=== PATIENT | female | born 1965 | race Caucasian/White ===

== ENCOUNTER 2018-05-14 10:37 | Inpatient (IN) | payer BC, MEDICARE, OTHER ==
[~2018-05-14] VITALS: Ht 160 cm; Wt 82.6 kg
[2018-05-14 12:34] LABS: HEMOGLOBIN. 8.1 g/dL (12.0-16.0); MEAN CORPUSCULAR HEMOGLOBIN 30.7 pg (28.0-32.0); MEAN CORPUSCULAR VOLUME 94.6 fL (81.0-99.0); MEAN PLATELET VOLUME 10.6 fl (7.4-10.4); PLATELET 160 x1000/uL (130-400); RED BLOOD CELL COUNT 2.65 mill/uL (4.2-5.4); RED CELL DISTRIBUTION WIDTH 15.3 % (11.6-14.6)
[2018-05-14 12:37] LABS: CHLORIDE 94 mEq/L (98-107)
[2018-05-14 12:40] LABS: INR 1.3; PROTHROMBIN TIME 12.6 sec (9.1-11.1)
[2018-05-14] MEDS ORDERED: VANCOMYCIN 1 G PREMIX 200 ML IV ONE (13:00)
[2018-05-14] MEDS ORDERED: SODIUM BICARBONATE 8.4% 1 MEQ/ML 50ML SYR IV ONE (13:00)
[2018-05-14] MEDS ORDERED: PIPERACILLIN/TAZ 3.375G PREMIX 50 ML IV ONE (13:00)
[2018-05-14] MEDS ORDERED: DEXTROSE 50% WATER 50ML SYRINGE IV ONE (13:00)
[2018-05-14] MEDS ORDERED: LEVOFLOXACIN 750MG PREMIX 150 ML IV ONE (13:00)
[2018-05-14] MEDS ORDERED: LEVOFLOXACIN 500MG PREMIX 100 ML IV ONE (13:00)
[2018-05-14] MEDS ORDERED: INSULIN REGULAR (HUMULIN R) 300UNITS/3ML IV ONE (13:00)
[2018-05-14] MEDS ORDERED: CALCIUM CHLORIDE 1GM/10ML SYR IV ONE (13:00)
[2018-05-14] MEDS ORDERED: SODIUM CHLORIDE 0.9% 1000ML BAG (SEPSIS BOLUS) IV ONE (13:00)
[2018-05-14] MEDS ORDERED: ALBUTEROL (0.083%) 2.5MG/3ML NEB HHN ONE (13:00)
[2018-05-14] MEDS ORDERED: SODIUM POLYSTYRENE SULFONATE 15 G/60 ML BOT PO ONE (13:00)
[2018-05-14 13:06] LABS: PLATELET ESTIMATE NORMAL
[2018-05-14] MEDS ORDERED: ASPIRIN 325MG TABLET PO ONE (13:15)
[2018-05-14] MEDS ORDERED: ACETAMINOPHEN 325MG TABLET PO ONE ×2 (14:15)
[2018-05-14] MEDS ORDERED: DILTIAZEM HCL 5MG/ML 5ML VIAL IV ONE (14:15)
[2018-05-14] MEDS ORDERED: DILTIAZEM HCL 125 MG in DEXT 5% WATER 100 ML IV ONE (14:15)
[2018-05-14] MEDS ORDERED: SODIUM POLYSTYRENE SULFONATE 15 G/60 ML BOT PO NR (14:30)
[2018-05-14 14:42] LABS: CLARITY URINE TURBID (CLEAR); COLOR URINE AMBER (YELLOW); KETONES URINE NEGATIVE (NEGATIVE); LEUKOCYTE ESTERASE URINE 3+ (NEGATIVE); NITRITE URINE NEGATIVE (NEGATIVE); OCCULT BLOOD URINE 2+ (NEGATIVE); PH URINE 7.5 (4.5-8.0); PROTEIN URINE 4+ (NEGATIVE); SPECIFIC GRAVITY URINE 1.016 (1.005-1.030); UROBILINOGEN URINE 0.2 E.U./dL (0.2-1.0)
[2018-05-14] MEDS ORDERED: LIDOCAINE HCL 1% 20ML VIAL (Pyxis) INJ ONE (14:53)
[2018-05-14] MEDS ORDERED: SODIUM BICARBONATE 4% (2.4MEQ) 5ML VIAL IV ONE (14:53)
[2018-05-14] MEDS ORDERED: DILTIAZEM HCL 125 MG in DEXT 5% WATER 100 ML IV SCH (15:00)
[2018-05-14] MEDS ORDERED: OSELTAMIVIR 30MG CAPSULE PO SCH (15:15)
[2018-05-14] MEDS ORDERED: LORAZEPAM 0.5MG TABLET PO PRN (16:15)
[2018-05-14] MEDS ORDERED: DOCUSATE SODIUM 100MG CAPSULE PO PRN (16:15)
[2018-05-14] MEDS ORDERED: MAGNESIUM/ALUMINUM HYDROXIDE/SIMETHICONE 30ML UDC PO PRN (16:15)
[2018-05-14] MEDS ORDERED: ACETAMINOPHEN 325MG TABLET PO PRN (16:15)
[2018-05-14] MEDS ORDERED: CLONIDINE 0.1MG TABLET PO PRN (16:15)
[2018-05-14] MEDS ORDERED: IPRATROPIUM/ALBUTEROL 0.5-3(2.5)MG/3ML NEB INH PRN (16:15)
[2018-05-14] MEDS ORDERED: HYDROCODONE/ACETAMINOPHEN 5/325MG TABLET PO PRN (16:15)
[2018-05-14] MEDS ORDERED: ONDANSETRON HCL 4MG/2ML INJ IV PRN (16:15)
[2018-05-14] MEDS ORDERED: DIPHENHYDRAMINE 50MG/ML VIAL IV PRN (16:15)
[2018-05-14] MEDS ORDERED: ACETAMINOPHEN 650MG SUPP PR PRN (16:15)
[2018-05-14 16:48] LABS: BG CARBOXYHEMOGLOBIN 0.4 % (0.5-1.5); BG DEOXYHEMOGLOBIN 4.6 % (0.0-5.0); BG FRACTION INSPIRED OXYGEN 32; BG METHEMOGLOBIN 0.4 % (0.0-1.5); BG OXYGEN SATURATION 95.4 % (92.0-98.5); BG OXYHEMOGLOBIN 94.6 % (94.0-97.0); BG PCO2 21.5 mmHg (35.0-45.0); BG PH 7.366 (7.350-7.450); BG PO2 87.4 mmHg (75.0-100.0); BG SAMPLE SITE RIGHT BRACHIAL; BG TOTAL HEMOGLOBIN 7.1 g/dL (12.0-18.0); BG VENT MODE NASAL CANNULA
[2018-05-14] MEDS ORDERED: CITRIC ACID/SODIUM CITRATE SOLN 30ML UDC PO NR (17:45)
[2018-05-14] MEDS ORDERED: DEXT 5%/0.9% NACL 1,000 ML IV SCH (17:45)
[2018-05-14] MEDS ORDERED: DEXTROSE 50% WATER 50ML SYRINGE IV PRN (17:45)
[2018-05-14] MEDS ORDERED: SODIUM BICARBONATE 8.4% 1 MEQ/ML 50ML SYR IV SCH (17:45)
[2018-05-14] MEDS ORDERED: PHENYLEPHRINE 40 MG in DEXT 5% WATER 246 ML IV PRN (18:00)
[2018-05-14] MEDS: INSULIN LISPRO 100 UNITS/ML SUBCUT SCH (18:20)
[2018-05-15] MEDS ORDERED: INSULIN LISPRO 100 UNITS/ML SUBCUT NR (01:00)
[2018-05-15] MEDS ORDERED: PIPERACILLIN/TAZ 2.25G PREMIX 50 ML IV NR (01:30)
[2018-05-15] MEDS ORDERED: ASPIRIN 325MG EC TABLET PO NR (02:30)
[2018-05-15 04:45] LABS: HEMATOCRIT. 21.5 % (36.0-48.0); MEAN CORPUSCULAR HEMOGLOBIN 30.1 pg (28.0-32.0); MEAN PLATELET VOLUME 11.2 fl (7.4-10.4); PLATELET 113 x1000/uL (130-400); RED BLOOD CELL COUNT 2.28 mill/uL (4.2-5.4); RED CELL DISTRIBUTION WIDTH 15.8 % (11.6-14.6)
[2018-05-15 04:50] LABS: CHLORIDE 98 mEq/L (98-107)
[2018-05-15 04:52] LABS: HEMOGLOBIN. 6.9 g/dL (12.0-16.0)
[2018-05-15 04:58] LABS: LDL CHOLESTEROL 51 mg/dL (5-100)
[2018-05-15 04:59] LABS: CREATINE KINASE 273 IU/L (26-192)
[2018-05-15 05:00] LABS: CREATINE KINASE MB FRACTION 2.6 ng/mL (0.5-3.6); HDL CHOLESTEROL 15 mg/dL (40-59); T4 FREE 1.42 ng/dL (0.76-1.46)
[2018-05-15 05:09] LABS: PHOSPHORUS 9.1 mg/dL (2.5-4.9)
[2018-05-15 07:19] LABS: NUCLEATED RED BLOOD CELLS 1 /100 WBC
[2018-05-15 07:20] LABS: PLATELET ESTIMATE DECREASED
[2018-05-15] MEDS ORDERED: CITRIC ACID/SODIUM CITRATE SOLN 30ML UDC PO SCH (09:00)
[2018-05-15] MEDS ORDERED: SODIUM BICARBONATE 8.4% 1 MEQ/ML 50ML SYR IV ONE (09:00)
[2018-05-15] MEDS: ASPIRIN 81MG EC TABLET PO SCH (09:00)
[2018-05-15] MEDS ORDERED: SODIUM POLYSTYRENE SULFONATE 15 G/60 ML BOT PO ONE (09:00)
[2018-05-15] MEDS: PANTOPRAZOLE SODIUM 40 MG/VIAL IV SCH (09:51)
[2018-05-15] MEDS: CITRIC ACID/SODIUM CITRATE SOLN 30ML UDC PO SCH ×3 (09:51→23:06)
[2018-05-15 14:41] LABS: *AMPHETAMINES SCREEN URINE NEGATIVE (NEGATIVE); *BARBITURATES SCREEN URINE NEGATIVE (NEGATIVE); *BENZODIAZEPINES SCREEN URINE NEGATIVE (NEGATIVE); *COCAINE SCREEN URINE NEGATIVE (NEGATIVE); METHADONE URINE SCREEN NEGATIVE (NEGATIVE); OPIATES URINE SCREEN NEGATIVE (NEGATIVE)
[2018-05-15 14:42] LABS: CANNABINOID URINE SCREEN NEGATIVE (NEGATIVE); PHENCYCLIDINE URINE SCREEN NEGATIVE (NEGATIVE)
[2018-05-15 15:42] LABS: HEMATOCRIT. 27.7 % (36.0-48.0); HEMOGLOBIN. 9.4 g/dL (12.0-16.0); MEAN CORPUSCULAR HEMOGLOBIN 30.6 pg (28.0-32.0); MEAN CORPUSCULAR VOLUME 90.3 fL (81.0-99.0); MEAN PLATELET VOLUME 10.8 fl (7.4-10.4); PLATELET 119 x1000/uL (130-400); RED BLOOD CELL COUNT 3.06 mill/uL (4.2-5.4); RED CELL DISTRIBUTION WIDTH 15.4 % (11.6-14.6)
[2018-05-15 16:04] LABS: NUCLEATED RED BLOOD CELLS 1 /100 WBC; PLATELET ESTIMATE SLIGHTLY DECREASED
[2018-05-15] MEDS ORDERED: PHENYLEPHRINE 40 MG in DEXT 5% WATER 246 ML IV PRN (17:45)
[2018-05-15 18:00] VITALS: BP 118/68
[2018-05-15] MEDS: PIPERACILLIN/TAZ 2.25G PREMIX 50 ML IV SCH (18:30)
[2018-05-15 19:29] LABS: HEPATITIS B SURFACE ANTIGEN NEGATIVE
[2018-05-15 19:58] LABS: HEPATITIS A AB IGM NEGATIVE (NEGATIVE)
[2018-05-15 20:00] VITALS: BP 124/73
[2018-05-15] MEDS ORDERED: AZITHROMYCIN 500 MG in DEXT 5% WATER 250 ML IV SCH (20:00)
[2018-05-15 21:00] VITALS: BP 139/76
[2018-05-15] MEDS ORDERED: VANCOMYCIN 1 G PREMIX 200 ML IV NR (21:00)
[2018-05-15] MEDS: BLOOD SUGAR DIAGNOSTIC STRIP TEST SCH ×2 (21:50→21:51)
[2018-05-15] MEDS: DILTIAZEM HCL 30MG TABLET PO SCH (22:18)
[2018-05-15] MEDS ORDERED: INFLUENZA VIRUS VACCINE(AFLURIA) 0.5ML SYR IM ONE (22:30)
[2018-05-15] MEDS ORDERED: PNEUMOCOCCAL 23-VAL P-SAC VAC 0.5 ML IM ONE (22:30)
[2018-05-15] MEDS: CALCIUM ACETATE 667MG CAPSULE PO SCH (23:05)
[2018-05-16] VITALS: BP 122/52
[2018-05-16] MEDS: PIPERACILLIN/TAZ 2.25G PREMIX 50 ML IV SCH ×2 (00:04→05:27)
[2018-05-16] MEDS: GUAIFENESIN 200MG/10ML SUGAR FREE UDC PO PRN (02:29)
[2018-05-16 04:00] VITALS: BP 122/62
[2018-05-16] MEDS: BLOOD SUGAR DIAGNOSTIC STRIP TEST SCH ×4 (07:08→21:00)
[2018-05-16] MEDS: DILTIAZEM HCL 30MG TABLET PO SCH ×3 (07:08→23:45)
[2018-05-16 07:22] LABS: HEMATOCRIT. 29.9 % (36.0-48.0); HEMOGLOBIN. 9.9 g/dL (12.0-16.0); MEAN CORPUSCULAR HEMOGLOBIN 29.9 pg (28.0-32.0); MEAN CORPUSCULAR VOLUME 90.4 fL (81.0-99.0); MEAN PLATELET VOLUME 10.8 fl (7.4-10.4); PLATELET 135 x1000/uL (130-400); RED BLOOD CELL COUNT 3.31 mill/uL (4.2-5.4); RED CELL DISTRIBUTION WIDTH 15.9 % (11.6-14.6)
[2018-05-16 07:38] LABS: PHOSPHORUS 5.2 mg/dL (2.5-4.9)
[2018-05-16 08:00] VITALS: BP 122/67
[2018-05-16] MEDS ORDERED: ASPIRIN 325MG EC TABLET PO SCH (09:00)
[2018-05-16 10:37] LABS: NUCLEATED RED BLOOD CELLS 1 /100 WBC
[2018-05-16 10:39] LABS: PLATELET ESTIMATE NORMAL
[2018-05-16 11:20] LABS: BG BASE EXCESS -0.1 mmol/L (-2.0-2.0); BG CARBOXYHEMOGLOBIN 0.3 % (0.5-1.5); BG DEOXYHEMOGLOBIN 7.5 % (0.0-5.0); BG FRACTION INSPIRED OXYGEN 28; BG HCO3 ACT 23.3 mmol/L (22.0-26.0); BG METHEMOGLOBIN 0.3 % (0.0-1.5); BG OXYGEN SATURATION 92.5 % (92.0-98.5); BG OXYHEMOGLOBIN 91.9 % (94.0-97.0); BG PCO2 33.4 mmHg (35.0-45.0); BG PH 7.462 (7.350-7.450); BG PO2 66.1 mmHg (75.0-100.0); BG SAMPLE SITE LEFT BRACHIAL; BG TOTAL HEMOGLOBIN 9.5 g/dL (12.0-18.0); BG VENT MODE NASAL CANNULA
[2018-05-16 12:00] VITALS: BP 113/59
[2018-05-16] MEDS: INSULIN LISPRO 100 UNITS/ML SUBCUT SCH ×3 (14:01→23:44)
[2018-05-16] MEDS: CALCIUM ACETATE 667MG CAPSULE PO SCH ×2 (14:12→18:29)
[2018-05-16] MEDS: CITRIC ACID/SODIUM CITRATE SOLN 30ML UDC PO SCH (14:40)
[2018-05-16 16:00] VITALS: BP 105/53
[2018-05-16] MEDS: CEFTRIAXONE 2 G in DEXTROSE 5% WATER 50 ML IV SCH (16:44)
[2018-05-16] MEDS: CLINDAMYCIN 600MG PREMIX 50 ML IV SCH (17:30)
[2018-05-16 20:00] VITALS: BP 115/63
[2018-05-16] MEDS: EPOETIN ALFA 10000UNITS/ML VIAL SUBCUT SCH ×2 (23:44→23:46)
[2018-05-17] VITALS: BP 121/78
[2018-05-17] MEDS ORDERED: AZITHROMYCIN 500 MG in DEXT 5% WATER 250 ML IV SCH (01:00)
[2018-05-17] MEDS: CLINDAMYCIN 600MG PREMIX 50 ML IV SCH ×3 (02:34→18:20)
[2018-05-17 04:00] VITALS: BP 105/63
[2018-05-17] MEDS: DILTIAZEM HCL 30MG TABLET PO SCH ×3 (06:00→21:59)
[2018-05-17] MEDS: BLOOD SUGAR DIAGNOSTIC STRIP TEST SCH ×4 (06:33→21:59)
[2018-05-17 06:53] LABS: HEMATOCRIT. 26.3 % (36.0-48.0); HEMOGLOBIN. 8.9 g/dL (12.0-16.0); MEAN CORPUSCULAR HEMOGLOBIN 30.5 pg (28.0-32.0); MEAN CORPUSCULAR VOLUME 90.8 fL (81.0-99.0); MEAN PLATELET VOLUME 10.7 fl (7.4-10.4); PLATELET 116 x1000/uL (130-400); RED CELL DISTRIBUTION WIDTH 16.3 % (11.6-14.6)
[2018-05-17 07:08] LABS: PHOSPHORUS 5.5 mg/dL (2.5-4.9)
[2018-05-17 08:00] VITALS: BP 125/79
[2018-05-17] MEDS: INSULIN LISPRO 100 UNITS/ML SUBCUT SCH ×4 (09:47→21:00)
[2018-05-17] MEDS: PANTOPRAZOLE SODIUM 40 MG/VIAL IV SCH (09:48)
[2018-05-17] MEDS: CALCIUM ACETATE 667MG CAPSULE PO SCH ×3 (09:48→17:28)
[2018-05-17] MEDS: ASPIRIN 81MG EC TABLET PO SCH ×2 (09:48→13:02)
[2018-05-17 10:15] LABS: NUCLEATED RED BLOOD CELLS 4 /100 WBC; PLATELET ESTIMATE DECREASED
[2018-05-17 12:00] VITALS: BP_SYST 131; BP_SYST 137; BP_SYST 139; BP_DIAS 70; BP_DIAS 75
[2018-05-17 13:42] LABS: BG BASE EXCESS 2.5 mmol/L (-2.0-2.0); BG CARBOXYHEMOGLOBIN 0.2 % (0.5-1.5); BG DEOXYHEMOGLOBIN 2.9 % (0.0-5.0); BG FRACTION INSPIRED OXYGEN 21; BG HCO3 ACT 25.6 mmol/L (22.0-26.0); BG METHEMOGLOBIN 0.3 % (0.0-1.5); BG OXYGEN SATURATION 97.1 % (92.0-98.5); BG OXYHEMOGLOBIN 96.6 % (94.0-97.0); BG PCO2 34.3 mmHg (35.0-45.0); BG PH 7.491 (7.350-7.450); BG PO2 95.1 mmHg (75.0-100.0); BG SAMPLE SITE LEFT BRACHIAL; BG TOTAL HEMOGLOBIN 10.8 g/dL (12.0-18.0); BG VENT MODE ROOM AIR
[2018-05-17 16:00] VITALS: BP 129/63
[2018-05-17] MEDS: CEFTRIAXONE 2 G in DEXTROSE 5% WATER 50 ML IV SCH (17:26)
[2018-05-17 20:00] VITALS: BP 118/66
[2018-05-18] VITALS: BP_SYST 120; BP_SYST 121; BP_SYST 122; BP_DIAS 59; BP_DIAS 63; BP_DIAS 65
[2018-05-18] MEDS: CLINDAMYCIN 600MG PREMIX 50 ML IV SCH ×3 (01:24→18:12)
[2018-05-18 04:00] VITALS: BP 141/89
[2018-05-18 06:01] LABS: HEMATOCRIT. 29.6 % (36.0-48.0); HEMOGLOBIN. 9.7 g/dL (12.0-16.0); MEAN CORPUSCULAR HEMOGLOBIN 30.4 pg (28.0-32.0); MEAN CORPUSCULAR VOLUME 92.9 fL (81.0-99.0); MEAN PLATELET VOLUME 10.4 fl (7.4-10.4); PLATELET 144 x1000/uL (130-400); RED BLOOD CELL COUNT 3.19 mill/uL (4.2-5.4); RED CELL DISTRIBUTION WIDTH 16.3 % (11.6-14.6)
[2018-05-18] MEDS: BLOOD SUGAR DIAGNOSTIC STRIP TEST SCH ×4 (06:31→22:29)
[2018-05-18] MEDS: DILTIAZEM HCL 30MG TABLET PO SCH ×3 (06:32→22:28)
[2018-05-18] MEDS: INSULIN LISPRO 100 UNITS/ML SUBCUT SCH ×4 (06:32→22:43)
[2018-05-18 06:33] LABS: PHOSPHORUS 3.1 mg/dL (2.5-4.9)
[2018-05-18 08:00] VITALS: BP_SYST 141; BP_SYST 143; BP_SYST 156; BP_DIAS 73; BP_DIAS 78; BP_DIAS 80
[2018-05-18] MEDS: CALCIUM ACETATE 667MG CAPSULE PO SCH ×3 (09:02→18:10)
[2018-05-18] MEDS: GUAIFENESIN 200MG/10ML SUGAR FREE UDC PO PRN ×2 (09:02→22:28)
[2018-05-18] MEDS: AZITHROMYCIN 250 MG TABLET PO SCH (09:02)
[2018-05-18] MEDS: ASPIRIN 81MG EC TABLET PO SCH (09:03)
[2018-05-18 12:00] VITALS: BP 138/79
[2018-05-18 12:23] LABS: NUCLEATED RED BLOOD CELLS 3 /100 WBC; PLATELET ESTIMATE NORMAL
[2018-05-18] MEDS: CEFTRIAXONE 2 G in DEXTROSE 5% WATER 50 ML IV SCH (16:11)
[2018-05-18] MEDS ORDERED: ENOXAPARIN 80MG/0.8ML SYR SUBCUT SCH (18:00)
[2018-05-18 20:00] VITALS: BP 137/78
[2018-05-18] MEDS: EPOETIN ALFA 10000UNITS/ML VIAL SUBCUT SCH (22:29)
[2018-05-19] VITALS: BP 124/77
[2018-05-19 04:00] VITALS: BP 149/81
[2018-05-19] MEDS: CLINDAMYCIN 600MG PREMIX 50 ML IV SCH ×3 (04:58→18:00)
[2018-05-19] MEDS: BLOOD SUGAR DIAGNOSTIC STRIP TEST SCH ×4 (06:41→21:00)
[2018-05-19] MEDS: DILTIAZEM HCL 30MG TABLET PO SCH (06:41)
[2018-05-19] MEDS: INSULIN LISPRO 100 UNITS/ML SUBCUT SCH ×4 (06:44→21:08)
[2018-05-19 07:23] LABS: HEMATOCRIT. 30.5 % (36.0-48.0); HEMOGLOBIN. 9.9 g/dL (12.0-16.0); MEAN CORPUSCULAR HEMOGLOBIN 30.3 pg (28.0-32.0); MEAN CORPUSCULAR VOLUME 93.6 fL (81.0-99.0); MEAN PLATELET VOLUME 10.2 fl (7.4-10.4); PLATELET 152 x1000/uL (130-400); RED BLOOD CELL COUNT 3.26 mill/uL (4.2-5.4); RED CELL DISTRIBUTION WIDTH 16.2 % (11.6-14.6)
[2018-05-19 07:55] LABS: PHOSPHORUS 3.2 mg/dL (2.5-4.9)
[2018-05-19 08:00] VITALS: BP 133/76
[2018-05-19] MEDS: PANTOPRAZOLE SODIUM 40 MG/VIAL IV SCH (09:00)
[2018-05-19] MEDS: CALCIUM ACETATE 667MG CAPSULE PO SCH ×3 (10:42→18:10)
[2018-05-19] MEDS: ASPIRIN 81MG EC TABLET PO SCH (10:43)
[2018-05-19] MEDS: AZITHROMYCIN 250 MG TABLET PO SCH (10:43)
[2018-05-19 12:00] VITALS: BP 133/75
[2018-05-19] MEDS: DILTIAZEM HCL 60MG TABLET PO SCH ×2 (13:27→18:00)
[2018-05-19 16:00] VITALS: BP 113/64
[2018-05-19] MEDS: CEFTRIAXONE 2 G in DEXTROSE 5% WATER 50 ML IV SCH (16:00)
[2018-05-19 20:30] VITALS: BP 137/66
[2018-05-20] MEDS: DILTIAZEM HCL 60MG TABLET PO SCH ×4 (00:24→17:56)
[2018-05-20 00:30] VITALS: BP 135/77
[2018-05-20 02:44] LABS: PLATELET ESTIMATE NORMAL
[2018-05-20 04:00] VITALS: BP 135/88
[2018-05-20] MEDS: BLOOD SUGAR DIAGNOSTIC STRIP TEST SCH ×4 (06:13→21:02)
[2018-05-20 07:18] LABS: HEMATOCRIT. 30.8 % (36.0-48.0); MEAN CORPUSCULAR HEMOGLOBIN 30.2 pg (28.0-32.0); MEAN CORPUSCULAR VOLUME 93.4 fL (81.0-99.0); MEAN PLATELET VOLUME 9.9 fl (7.4-10.4); PLATELET 156 x1000/uL (130-400); RED CELL DISTRIBUTION WIDTH 16.2 % (11.6-14.6)
[2018-05-20 08:00] VITALS: BP 125/68
[2018-05-20] MEDS: FAMOTIDINE 20MG/2ML VIAL IV SCH (08:58)
[2018-05-20] MEDS: CALCIUM ACETATE 667MG CAPSULE PO SCH ×3 (08:58→17:56)
[2018-05-20] MEDS: ASPIRIN 81MG EC TABLET PO SCH (08:58)
[2018-05-20] MEDS: INSULIN LISPRO 100 UNITS/ML SUBCUT SCH ×4 (09:04→21:43)
[2018-05-20 10:41] LABS: NUCLEATED RED BLOOD CELLS 1 /100 WBC
[2018-05-20 10:42] LABS: PLATELET ESTIMATE NORMAL
[2018-05-20 12:00] VITALS: BP_SYST 132; BP_SYST 139; BP_DIAS 46; BP_DIAS 59; BP_DIAS 78
[2018-05-20] MEDS ORDERED: ENOXAPARIN 80MG/0.8ML SYR SUBCUT SCH (14:00)
[2018-05-20 16:00] VITALS: BP 129/64
[2018-05-20] MEDS: CEFTRIAXONE 2 G in DEXTROSE 5% WATER 50 ML IV SCH (16:38)
[2018-05-20 20:00] VITALS: BP 120/60
[2018-05-20] MEDS: METRONIDAZOLE 500MG TABLET PO SCH (21:42)
[2018-05-20] MEDS: GUAIFENESIN 200MG/10ML SUGAR FREE UDC PO PRN (21:42)
[2018-05-21] VITALS: BP 123/63
[2018-05-21] MEDS: DILTIAZEM HCL 60MG TABLET PO SCH ×4 (00:27→18:14)
[2018-05-21 04:00] VITALS: BP_SYST 115; BP_SYST 149; BP_SYST 170; BP_DIAS 48; BP_DIAS 59; BP_DIAS 65
[2018-05-21] MEDS: BLOOD SUGAR DIAGNOSTIC STRIP TEST SCH ×4 (05:29→21:37)
[2018-05-21 06:53] LABS: HEMATOCRIT. 31.4 % (36.0-48.0); HEMOGLOBIN. 10.2 g/dL (12.0-16.0); MEAN CORPUSCULAR HEMOGLOBIN 30.5 pg (28.0-32.0); MEAN CORPUSCULAR VOLUME 94.1 fL (81.0-99.0); MEAN PLATELET VOLUME 9.9 fl (7.4-10.4); PLATELET 183 x1000/uL (130-400); RED BLOOD CELL COUNT 3.33 mill/uL (4.2-5.4); RED CELL DISTRIBUTION WIDTH 16.1 % (11.6-14.6)
[2018-05-21 07:11] LABS: PHOSPHORUS 3.3 mg/dL (2.5-4.9)
[2018-05-21 07:56] VITALS: BP 140/66
[2018-05-21] MEDS: CALCIUM ACETATE 667MG CAPSULE PO SCH ×3 (08:12→18:14)
[2018-05-21] MEDS: INSULIN LISPRO 100 UNITS/ML SUBCUT SCH ×4 (08:13→21:48)
[2018-05-21] MEDS: ASPIRIN 81MG EC TABLET PO SCH (08:51)
[2018-05-21] MEDS: FAMOTIDINE 20MG/2ML VIAL IV SCH (08:51)
[2018-05-21] MEDS: METRONIDAZOLE 500MG TABLET PO SCH ×2 (08:51→21:37)
[2018-05-21 10:33] LABS: PLATELET ESTIMATE NORMAL
[2018-05-21 11:43] VITALS: BP_SYST 118; BP_SYST 119; BP_SYST 129; BP_DIAS 54; BP_DIAS 58; BP_DIAS 60
[2018-05-21 15:28] LABS: HEMATOCRIT. 32.1 % (36.0-48.0); HEMOGLOBIN. 10.5 g/dL (12.0-16.0); MEAN CORPUSCULAR HEMOGLOBIN 30.7 pg (28.0-32.0); MEAN CORPUSCULAR VOLUME 94.2 fL (81.0-99.0); MEAN PLATELET VOLUME 9.5 fl (7.4-10.4); PLATELET 185 x1000/uL (130-400); RED BLOOD CELL COUNT 3.41 mill/uL (4.2-5.4); RED CELL DISTRIBUTION WIDTH 16.5 % (11.6-14.6)
[2018-05-21 16:00] VITALS: BP 90/66
[2018-05-21] MEDS: CEFTRIAXONE 2 G in DEXTROSE 5% WATER 50 ML IV SCH (17:01)
[2018-05-21 17:57] LABS: PLATELET ESTIMATE NORMAL
[2018-05-21 20:00] VITALS: BP_SYST 130; BP_SYST 150; BP_SYST 151; BP_DIAS 60; BP_DIAS 63; BP_DIAS 68
[2018-05-22] VITALS (13 sets, daily range): BP systolic 135–156; BP diastolic 60–87
[2018-05-22] MEDS: DILTIAZEM HCL 60MG TABLET PO SCH ×4 (01:24→17:01)
[2018-05-22] MEDS: BLOOD SUGAR DIAGNOSTIC STRIP TEST SCH ×4 (06:28→21:00)
[2018-05-22 06:46] LABS: HEMATOCRIT. 30.6 % (36.0-48.0); HEMOGLOBIN. 9.9 g/dL (12.0-16.0); MEAN CORPUSCULAR HEMOGLOBIN 30.2 pg (28.0-32.0); MEAN CORPUSCULAR VOLUME 93.8 fL (81.0-99.0); MEAN PLATELET VOLUME 9.7 fl (7.4-10.4); PLATELET 201 x1000/uL (130-400); RED BLOOD CELL COUNT 3.26 mill/uL (4.2-5.4); RED CELL DISTRIBUTION WIDTH 16.4 % (11.6-14.6)
[2018-05-22 07:07] LABS: PHOSPHORUS 3.9 mg/dL (2.5-4.9)
[2018-05-22] MEDS: INSULIN LISPRO 100 UNITS/ML SUBCUT SCH ×4 (08:10→21:23)
[2018-05-22] MEDS: METRONIDAZOLE 500MG TABLET PO SCH ×2 (09:45→21:20)
[2018-05-22] MEDS: CALCIUM ACETATE 667MG CAPSULE PO SCH ×3 (09:45→16:52)
[2018-05-22] MEDS: ASPIRIN 81MG EC TABLET PO SCH (09:45)
[2018-05-22] MEDS: FAMOTIDINE 20MG/2ML VIAL IV SCH (09:48)
[2018-05-22] MEDS ORDERED: LIDOCAINE HCL 1% 20ML VIAL (Pyxis) INJ ONE (10:22)
[2018-05-22] MEDS ORDERED: IODIXANOL 320MG/ML 100 ML BOTTLE IV ONE (10:22)
[2018-05-22] MEDS ORDERED: ONDANSETRON HCL 4MG/2ML INJ IV PRN (10:30)
[2018-05-22] MEDS ORDERED: MORPHINE SULFATE 4 MG/ML CPJ (NOT FOR IM USE) IV PRN (10:30)
[2018-05-22] MEDS ORDERED: ACETAMINOPHEN 325MG TABLET PO PRN (10:30)
[2018-05-22] MEDS ORDERED: ATROPINE SULFATE 1MG/10ML SYR IV PRN (10:30)
[2018-05-22] MEDS ORDERED: MIDAZOLAM HCL 2 MG/2 ML VIAL ONE (10:36)
[2018-05-22] MEDS ORDERED: FENTANYL CITRATE/PF 50MCG/ML 2ML VIAL ONE (10:37)
[2018-05-22] MEDS ORDERED: ASPIRIN/SOD BICARB/CITRIC ACID 324MG TAB EFF ONE (10:40)
[2018-05-22 12:20] LABS: TOTAL IRON BINDING CAPACITY 241 ug/dL (250-450)
[2018-05-22 13:25] LABS: VITAMIN B12 SERUM 1805 pg/mL (211-911)
[2018-05-22] MEDS ORDERED: CLOPIDOGREL 75MG TABLET PO NR (15:15)
[2018-05-22] MEDS ORDERED: HEPARIN SODIUM 1,000 UNIT/1ML VIAL IV ONE (15:58)
[2018-05-22] MEDS: CEFTRIAXONE 2 G in DEXTROSE 5% WATER 50 ML IV SCH (16:52)
[2018-05-22 17:58] LABS: PLATELET ESTIMATE NORMAL
[2018-05-22] MEDS ORDERED: ENOXAPARIN 60MG/0.6ML SYR SUBCUT ONE (21:15)
[2018-05-22] MEDS ORDERED: ENOXAPARIN 60MG/0.6ML SYR SUBCUT SCH (22:00)
[2018-05-22] MEDS: GUAIFENESIN 200MG/10ML SUGAR FREE UDC PO PRN (22:28)
[2018-05-23] VITALS (23 sets, daily range): BP systolic 122–187; BP diastolic 48–106
[2018-05-23] MEDS: DILTIAZEM HCL 60MG TABLET PO SCH ×3 (00:16→12:52)
[2018-05-23] MEDS: BLOOD SUGAR DIAGNOSTIC STRIP TEST SCH ×2 (06:50→11:50)
[2018-05-23 06:52] LABS: HEMATOCRIT. 31.5 % (36.0-48.0); HEMOGLOBIN. 10.2 g/dL (12.0-16.0); MEAN CORPUSCULAR HEMOGLOBIN 30.6 pg (28.0-32.0); MEAN CORPUSCULAR VOLUME 94.8 fL (81.0-99.0); MEAN PLATELET VOLUME 9.1 fl (7.4-10.4); PLATELET 223 x1000/uL (130-400); RED BLOOD CELL COUNT 3.32 mill/uL (4.2-5.4); RED CELL DISTRIBUTION WIDTH 16.8 % (11.6-14.6)
[2018-05-23 07:06] LABS: FOLIC ACID (FOLATE) SERUM 10.9 ng/mL (>5.38)
[2018-05-23] MEDS: INSULIN LISPRO 100 UNITS/ML SUBCUT SCH ×2 (07:14→12:53)
[2018-05-23] MEDS: CALCIUM ACETATE 667MG CAPSULE PO SCH ×2 (07:50→12:52)
[2018-05-23] MEDS: FAMOTIDINE 20MG/2ML VIAL IV SCH (07:51)
[2018-05-23] MEDS: ASPIRIN 81MG EC TABLET PO SCH (07:51)
[2018-05-23] MEDS: METRONIDAZOLE 500MG TABLET PO SCH (07:51)
[2018-05-23 08:13] LABS: PHOSPHORUS 4.3 mg/dL (2.5-4.9)
[2018-05-23] MEDS ORDERED: CLOPIDOGREL 75MG TABLET PO SCH (09:00)
[2018-05-23 11:30] LABS: PLATELET ESTIMATE NORMAL
[2018-05-23] MEDS: CEFTRIAXONE 2 G in DEXTROSE 5% WATER 50 ML IV SCH (16:33)
== END 2018-05-23 19:15 | disposition left against medical advice (07) | DRG 871 ==
LOC: ER 10:37 → 7WST 14:21 → EDBEDREQ 14:24 → EDBEDREQTM 19:54 → EDBEDREQSVC 19:54 → ENRESERV 05-15 14:39 → 7WST 05-15 17:29 → 3WST 05-22 11:50
PROVIDERS: ADMIT Internal Medicine; ATTEND Internal Medicine
PROC: 02HV33Z Insertion of Infusion Device into Superior Vena Cava, Percutaneous Approach (ICD-10-PCS; 2018-05-14)
PROC: B548ZZA Ultrasonography of Superior Vena Cava, Guidance (ICD-10-PCS; 2018-05-14)
PROC: 5A1D70Z Performance of Urinary Filtration, Intermittent, Less than 6 Hours Per Day (ICD-10-PCS; 2018-05-14)
PROC: 30233N1 Transfusion of Nonautologous Red Blood Cells into Peripheral Vein, Percutaneous Approach (ICD-10-PCS; 2018-05-15)
PROC: 5A1D70Z Performance of Urinary Filtration, Intermittent, Less than 6 Hours Per Day (ICD-10-PCS; 2018-05-15)
PROC: 5A1D70Z Performance of Urinary Filtration, Intermittent, Less than 6 Hours Per Day (ICD-10-PCS; 2018-05-17)
PROC: 02HV33Z Insertion of Infusion Device into Superior Vena Cava, Percutaneous Approach (ICD-10-PCS; 2018-05-19)
PROC: B548ZZA Ultrasonography of Superior Vena Cava, Guidance (ICD-10-PCS; 2018-05-19)
PROC: B5181ZA Fluoroscopy of Superior Vena Cava using Low Osmolar Contrast, Guidance (ICD-10-PCS; 2018-05-19)
PROC: 5A1D70Z Performance of Urinary Filtration, Intermittent, Less than 6 Hours Per Day (ICD-10-PCS; 2018-05-19)
PROC: 3E1M39Z Irrigation of Peritoneal Cavity using Dialysate, Percutaneous Approach (ICD-10-PCS; 2018-05-20)
PROC: 4A023N7 Measurement of Cardiac Sampling and Pressure, Left Heart, Percutaneous Approach (ICD-10-PCS; principal; 2018-05-22)
PROC: B2111ZZ Fluoroscopy of Multiple Coronary Arteries using Low Osmolar Contrast (ICD-10-PCS; 2018-05-22)
PROC: 3E1M39Z Irrigation of Peritoneal Cavity using Dialysate, Percutaneous Approach (ICD-10-PCS; 2018-05-22)
PROC: 3E1M39Z Irrigation of Peritoneal Cavity using Dialysate, Percutaneous Approach (ICD-10-PCS; 2018-05-23)
DX: A41.9 Sepsis, unspecified organism (principal); E43 Unspecified severe protein-calorie malnutrition; N18.6 End stage renal disease; I50.23 Acute on chronic systolic (congestive) heart failure; J11.08 Influenza due to unidentified influenza virus with specified pneumonia; J18.1 Lobar pneumonia, unspecified organism; I21.4 Non-ST elevation (NSTEMI) myocardial infarction; D68.59 Other primary thrombophilia; E87.1 Hypo-osmolality and hyponatremia; E87.2 Acidosis; I31.3 Pericardial effusion (noninflammatory); N17.9 Acute kidney failure, unspecified; N39.0 Urinary tract infection, site not specified; I42.9 Cardiomyopathy, unspecified; I13.2 Hypertensive heart and chronic kidney disease with heart failure and with stage 5 chronic kidney disease, or end stage renal disease; K92.2 Gastrointestinal hemorrhage, unspecified; R18.8 Other ascites; D63.8 Anemia in other chronic diseases classified elsewhere; E78.5 Hyperlipidemia, unspecified; E87.5 Hyperkalemia; E11.22 Type 2 diabetes mellitus with diabetic chronic kidney disease; I48.91 Unspecified atrial fibrillation; R65.20 Severe sepsis without septic shock; K80.20 Calculus of gallbladder without cholecystitis without obstruction; B96.89 Other specified bacterial agents as the cause of diseases classified elsewhere; D69.6 Thrombocytopenia, unspecified; E83.39 Other disorders of phosphorus metabolism; I27.20 Pulmonary hypertension, unspecified; B95.0 Streptococcus, group A, as the cause of diseases classified elsewhere; B96.20 Unspecified Escherichia coli [E. coli] as the cause of diseases classified elsewhere; Z53.21 Procedure and treatment not carried out due to patient leaving prior to being seen by health care provider; J34.89 Other specified disorders of nose and nasal sinuses; I08.0 Rheumatic disorders of both mitral and aortic valves; I25.10 Atherosclerotic heart disease of native coronary artery without angina pectoris; Z82.49 Family history of ischemic heart disease and other diseases of the circulatory system; Z83.3 Family history of diabetes mellitus; Z99.2 Dependence on renal dialysis; Z68.32 Body mass index [BMI] 32.0-32.9, adult
CPT/HCPCS: 36415; 36556; 36569; 36600; 71045; 71250; 74176; 76705; 76937; 77001; 80048; 80061; 80076; 80305; 82270; 82375; 82533; 82550; 82553; 82607; 82746; 82805; 82962; 83036; 83540; 83550; 83605; 83735; 83935; 84100; 84145; 84439; 84443; 84484; 85044; 85347; 86705; 86709; 86803; 86850; 86900; 86920; 87015; 87045; 87077; 87186; 87340; 87427; 87449; 87804; 90686; 90732; 93005; 93306; 93458; 93970; 94640; 96374; 96375; 97162; 99291; A6261; C1725; C1752; C1760; C1769; C1893; C9113; J0456; J0696; J0885; J1200; J1642; J1644; J1650; J1815; J1956; J2250; J2270; J2543; J3010; J3370; J3490; J7030; J7042; J7050; J7060; J7611; P9016; Q9967